=== PATIENT | male | born 1980 | race Caucasian/White ===

== ENCOUNTER → 2020-06-08 12:28 | Outpatient (CLI) | payer OTHER, SELFPAY ==
--- NOTE | 2020-06-08 12:42 | MRI_ITS ---
HISTORY: pain low back/rt leg, 2 prior surgeries. Leg pain. Foot numb on right. Symptoms ongoing for 4-6 weeks. Constant ache. Hip area. For surgery 9 years ago and 12 years ago. EXAMINATION: MR Spine Lumbar WO/W Contrast TECHNIQUE: Multiplanar and multisequence MR images of the lumbar spine. IV Contrast dosage and agent: 30 mL of Dotarem COMPARISON: X-rays of the lumbar spine are available from November 09, 2014. Previous MRI of the lumbar spine is available from November 09, 2014. The 2015 study was also postoperative. FINDINGS: Bony alignment remains near normal. L4 is minimally posteriorly subluxed on L5. Vertebral body height is well preserved. All the disks demonstrate some loss of height. All the discs demonstrate various degrees of some desiccation. Abnormal increased T2-weighted signal and decreased T1-weighted signal consistent with marrow edema is new within the anterior inferior aspect of the L2 vertebral body. This area also enhances on T1 post gadolinium imaging. At the L1-L2 level there is minimal disc bulge. At the L2-L3 level there are postoperative change in the spinal canal is widely patent. At the L3-L4 level is postoperative change in the spinal canal is widely patent. At the L4-L5 level there is a central disc protrusion with an extruded disc fragment that extends down inferiorly in a right paracentral position. I measure this disc as 2.2 x 1.3 x 1.7 cm. It exits inferior to the exiting L4 nerve but impinges the right L5 nerve in the lateral recess. This is new since the previous study At the L5-S1 level is patent and postoperative. MRI/Spine Lumbar W/WO Contrast IMPRESSION: New L4-L5 disc protrusion with likely extrusion in the right paraspinal region. I measure this disc at 2.2 x 1.3 x 1.7 cm, and it impinges the right L5 nerve. at 0621 Reported and signed by: Moreno Ritter MD Electronically Signed: Moreno Ritter MD at 6:20 EST Tel , Service support ,
== END ==
PROVIDERS: PCP Family Medicine; Referring Provider Family Medicine; Visit Provider Family Medicine
DX: M54.16 Radiculopathy, lumbar region (principal)
CPT/HCPCS: 72158; A9575

== ENCOUNTER 2024-09-03 14:23 | Emergency (ER) | payer OTHER, SELFPAY ==
[2024-09-03 14:25] VITALS: BP 129/81; PULSE 121; RESP 20; TEMP 37; O2SAT 97; BMI 41.7
--- NOTE | 2024-09-03 15:36 | EDS_ITS ---
HPI History of Present Illness Chief Complaint: Weakness Narrative Narrative: 43-year-old male past medical history of hypertension, states he is on 5 different medications, presents with diarrhea, lightheadedness and generalized weakness that he experienced this morning. States that maybe he had food poisoning. Yesterday everything was fine but he awoke this morning, stood up, and felt very lightheaded. He denies any vertiginous type symptoms, no chest pain or shortness of breath. He states that he had 4-5 episodes of watery stool, nonbloody. He noticed that his heart rate when he took his blood pressure this morning was approximately 119 bpm. No recent fevers or chills. It seems to be worse when he stands and tries to walk. [facility] Medical History (Updated 09/03/24 @ 19:27 by Rajeev Cavazos MD) HTN (hypertension) Sleep apnea Home Medications ?Medication ?Instructions ?Recorded ?Last Taken ?Type cephalexin 500 mg capsule 500 mg PO Q6 ##40 04/13/16 U nknown Rx diltiazem HCl 180 mg 180 mg PO DAILY 04/13/16 Unk nown History capsule,extended release 24 hr (Cartia XT) losartan 100 1 ea PO DAILY 04/13/16 Unkno wn History mg-hydrochlorothiazide 25 mg tablet sulfamethoxazole 800 1 tab PO BID ##20 04/13/16 U nknown Rx mg-trimethoprim 160 mg tablet Allergy/AdvReac Type Severity Reaction Status Date / Time No Known Allergies Allergy Verified 04/13/16 19:17 Social History Smoking Status: Never smoker ROS ROS ED ROS Narrative Constitutional: No fever, no chills. HEENT: No sore throat. No neck pain. Cardiovascular: No chest pain. No palpitations. No pedal edema. Respiratory: No cough, no shortness of breath. Abdominal: No abdominal pain. No nausea. No vomiting. Positive diarrhea, 4-5 episodes, nonbloody. Genitourinary: No dysuria. No hematuria. Musculoskeletal: No myalgias. No arthralgias. Neurologic: No headaches. No dizziness. Positive lightheadedness and near syncope. Skin: No rash. No change in color. Psychiatric: No depression. Mild anxiety. EXAM Physical Exam Narrative Exam Narrative: Afebrile. Vital signs noted. Nontoxic-appearing. Cardiovascular examination reveals a regular tachycardia. Lungs are clear to auscultation bilaterally. Abdomen is soft and nontender without guarding or rebound. Positive bowel sounds. Neurological examination nonfocal and nonlateralizing. No noted pedal edema. Const Vital Signs: 09/03/24 14:25 09/03/24 16:11 09/03/24 16:12 Temperature 98.6 F Temperature Source Temporal Pulse Rate 121 H Pulse Rate [Lying] Pulse Rate [Sitting (for 1 minute prior to obtaining)] Pulse Rate [Standing (for 1 minute prior to obtaining)] Respiratory Rate 20 H Respiratory Effort Normal Non-Labored Normal Non-Labored Respiratory Pattern Normal Blood Pressure 129/81 H Blood Pressure [Lying] Blood Pressure [Sitting (for 1 minute prior to obtaining)] Blood Pressure [Standing (for 1 minute prior to obtaining)] Blood Pressure Mean 97 Blood Pressure Mean [Lying] Blood Pressure Mean [Sitting (for 1 minute prior to obtaining)] Blood Pressure Mean [Standing (for 1 minute prior to obtaining)] Pulse Ox 97 Oxygen Delivery Method Room Air 09/03/24 16:17 09/03/24 16:17 09/03/24 17:00 Temperature Temperature Source Pulse Rate 106 H 92 Pulse Rate [Lying] 97 Pulse Rate [Sitting (for 1 minute prior to obtaining)] 102 H Pulse Rate [Standing (for 1 minute prior to obtaining)] 119 H Respiratory Rate 20 H 12 Respiratory Effort Respiratory Pattern Blood Pressure 132/80 H 161/92 H Blood Pressure [Lying] 132/80 H Blood Pressure [Sitting (for 1 minute prior to obtaining)] 133/84 H Blood Pressure [Standing (for 1 minute prior to obtaining)] 124/86 H Blood Pressure Mean 97 115 Blood Pressure Mean [Lying] 97 Blood Pressure Mean [Sitting (for 1 minute prior to obtaining)] 100 Blood Pressure Mean [Standing (for 1 minute prior to obtaining)] 98 Pulse Ox 96 99 Oxygen Delivery Method Room Air 09/03/24 18:00 Temperature Temperature Source Pulse Rate 103 H Pulse Rate [Lying] Pulse Rate [Sitting (for 1 minute prior to obtaining)] Pulse Rate [Standing (for 1 minute prior to obtaining)] Respiratory Rate 17 Respiratory Effort Respiratory Pattern Blood Pressure 150/80 H Blood Pressure [Lying] Blood Pressure [Sitting (for 1 minute prior to obtaining)] Blood Pressure [Standing (for 1 minute prior to obtaining)] Blood Pressure Mean 103 Blood Pressure Mean [Lying] Blood Pressure Mean [Sitting (for 1 minute prior to obtaining)] Blood Pressure Mean [Standing (for 1 minute prior to obtaining)] Pulse Ox 97 Oxygen Delivery Method Room Air MDM MDM MDM Narrative Medical decision making narrative: Differential diagnosis includes but not limited to intravascular volume depletion versus dehydration versus other electrolyte imbalance. Patient states that he is not on a diuretic currently. I have low suspicion for pulmonary embolism as he has no risk factors and he is not hypoxic. He might also have gastroenteritis. EKG was obtained and interpreted by myself independently as sinus tachycardia at [address] changes. No STEMI. Patient was bolused normal saline 1 L intravenously and orthostatics obtained as well as basic blood work including CBC and CMP. Currently I do not feel he needs any imaging of his abdomen. I reviewed his laboratory work and he has normal white count of 9.4, hemoglobin 15.6, hematocrit 45.6, platelet count normal at 277. BUN slightly elevated 21 with creatinine 1.29 which may be mild dehydration. Glucose normal at 95 with a normal anion gap of 7. LFTs show AST of 12 and ALT normal at 45. Patient requested to the nurse for cardiac enzymes to be drawn. He was seen ambulating to the bathroom without difficulty and states he is less lightheaded. His initial troponin is 8 with repeat being 14 for an acceptable delta troponin. He is less tachycardic and even had a heart rate in the 90s at 1 time on the monitor. I think he probably had more volume depletion. I feel he can be discharged to follow-up with his primary care provider. Return instructions to the emergency department were reviewed. Disposition is discharged home in stable condition. History & Record Review Discussion w/independent historian: Patient Lab Data Attestation: I reviewed the patient's lab results. Labs: Laboratory Results - last 24 hr 09/03/24 09/03/24 16:15 16:25 WBC 9.4 RBC 5.23 Hgb 15.6 Hct 45.6 MCV 87.2 MCH 29.8 MCHC 34.2 RDW Std Deviation 41.5 RDW Coeff of [place] 13.2 Plt Count 277 MPV 10.0 Sodium 138 Potassium 3.6 Chloride 104 Carbon Dioxide 27.0 Anion Gap 7 BUN 21 H Creatinine 1.29 Estim Creat Clear Calc 126.97 Est GFR (MDRD) Af Amer 78 Est GFR (MDRD) Non-Af 65 BUN/Creatinine Ratio 16.3 Glucose 95 Calcium 9.4 Total Bilirubin 1.40 H AST 12 L ALT 45 Alkaline Phosphatase 88 Troponin I High Sens 8 14 Total Protein 7.7 Albumin 3.7 Globulin 4.0 Albumin/Globulin Ratio 0.9 Discharge Plan Triage Chief Complaint: Weakness Other Complaint: Chest Pain ED Provider: Rajeev Cavazos Dx/Rx/DC Orders Clinical Impression: Lightheadedness, Generalized weakness, Diarrhea Instructions: ED Diarrhea, Unknown Cause, ED Near-Fainting, Uncertain Cause, ED Weakness (Uncertain Cause) Prescriptions: No Action diltiazem HCl [Cartia XT] 180 MG capsule,extended release 24hr 180 mg PO DAILY losartan-hydrochlorothiazide 1 EACH tablet 1 ea PO DAILY sulfamethoxazole-trimethoprim 1 TABLET tablet 1 tab PO BID Qty: 20 0RF cephalexin 500 MG capsule 500 mg PO Q6 Qty: 40 0RF Stand Alone Forms: ED Work / School Excuse Primary Care Provider: Get Ayon Referrals: Get Ayon DO [Primary Care Provider] - 3-5 Days if not improving Activity Restrictions/Additional Instructions: Drink plenty of oral fluids. Return with new or worsening symptoms. Print Language: Kyrgyz Disposition Disposition: Home, Self Care
[2024-09-03 16:17] VITALS: BP 124/86; BP 132/80; BP 133/84; PULSE 102; PULSE 106; PULSE 119; PULSE 97; RESP 20; O2SAT 96
[2024-09-03 16:22] LABS: Hematocrit 45.6 % (40-54); Hemoglobin 15.6 g/dL (13.0-16.5); Mean Corp Hgb Conc 34.2 g/dL (32-36); Mean Corpuscular Hgb 29.8 pg (27.0-32.0); Mean Corpuscular Volume 87.2 fL (80-94); Platelet Count 277 K/mm3 (150-450); RBC Distribution Width CV 13.2 % (11.6-14.6); RBC Distribution Width SD 41.5 fl (35.1-43.9); Red Blood Count 5.23 M/mm3 (4.6-6.2); White Blood Count 9.4 K/mm3 (4.4-11.0)
[2024-09-03] MEDS: 0.9% Normal Saline (1000mL) 1,000 ML 1000 ML IV (16:22)
[2024-09-03 16:37] LABS: ALB/GLOB Ratio 0.9 RATIO (0.9-2.4); AST(SGOT) 12 U/L (15-37); Alanine Aminotransfer ALT/SGPT 45 U/L (16-61); Albumin, Serum 3.7 g/dL (3.2-5.0); Alkaline Phosphatase 88 U/L (45-117); Anion Gap 7 (5-15); BUN 21 mg/dL (7-18); BUN/Creat Ratio 16.3 RATIO (10-20); Calcium,Total 9.4 mg/dL (8.5-10.1); Chloride 104 mmol/L (98-107); Creatinine, Serum 1.29 mg/dL (0.70-1.30); EST Glomerular Filtration Rate 65 mL/min (>60); Est Glom Filt Rate - Afr Amer 78 mL/min (>60); Estimated Creatinine Clearance 126.97 ml/min; Glucose 95 mg/dL (74-106); Potassium 3.6 mmol/L (3.5-5.1); Protein, Total 7.7 g/dL (6.4-8.2); Sodium Level 138 mmol/L (136-145)
[2024-09-03 17:00] VITALS: BP 161/92; PULSE 92; RESP 12; O2SAT 99
[2024-09-03 17:05] LABS: Troponin-I HS 8 pg/mL (3.0-78.0)
[2024-09-03 18:00] VITALS: BP 150/80; PULSE 103; RESP 17; O2SAT 97
[2024-09-03 18:47] LABS: Troponin-I HS 14 pg/mL (3.0-78.0)
[2024-09-03 19:00] VITALS: BP 150/83; PULSE 107; RESP 15; O2SAT 96
[2024-09-03 19:45] VITALS: BP 150/83; PULSE 92; RESP 16; TEMP 36.6; O2SAT 99
== END 2024-09-03 19:46 | disposition home or self-care (01) ==
PROVIDERS: Emergency Provider Emergency Medicine; PCP Family Medicine; Visit Provider Emergency Medicine
DX: R42 Dizziness and giddiness (principal); R53.1 Weakness; I10 Essential (primary) hypertension; R19.7 Diarrhea, unspecified; F41.9 Anxiety disorder, unspecified
CPT/HCPCS: 80053; 84484; 85027; 93005; 96360; 99285; A4216